=== PATIENT | female | born 1960 | race Caucasian/White ===

== ENCOUNTER 2018-04-08 10:54 | Emergency (ER) | payer OTHER, SELFPAY ==
[2018-04-08 10:57] VITALS: BP 150/93; PULSE 89; RESP 16; TEMP 36.6; O2SAT 97; BMI 27.4
[2018-04-08] MEDS: DiphenhydrAMINE 50 MG/ML Syringe 25 MG IV (11:34)
[2018-04-08] MEDS: Ketorolac 15 MG/ML Vial IV (11:34)
[2018-04-08] MEDS: 0.9% Normal Saline 1,000 ML 1000 ML IV (11:34)
[2018-04-08] MEDS: Metoclopramide 10 MG/2 ML Vial IV (11:34)
[2018-04-08 12:17] VITALS: BP 133/92; PULSE 65; RESP 16; O2SAT 98
--- NOTE | 2018-04-08 12:46 | ED.VISSUMM ---
- ER Visit Summary Date of Service: 04/08/18 Chief Complaint: Headache [] History of Present Illness: The patient is a 58 F [presents the emergency department complaint of a headache that she rates a 10 out of 10. Patient states she has had a headache for about 5 days. Patient states she has had similar headaches off and on but #1 it has lasted this long. She describes it as in the back of her head and left side of her head. Patient denies any falls or head injuries. Patient does have a history of hypertension and history of migraine headaches. Patient typically will get a headache about once every month. She denies any fever or recent illness. She denies any carbon monoxide exposures.] Physical Examination: [HEENT-PERRLA, EOMI. Cranial nerves II through XII grossly intact. TMs clear. Mucous membranes moist. No adenopathy. Cardiovascular-regular rate and rhythm without murmur or ectopy Lungs-clear to auscultation, chest wall stable without crepitus or subcu emphysema Abdomen-normoactive bowel sounds, soft, nontender, no rebound or rigidity, no peritoneal signs. Neuro giub-uwbinu-ywrp and heel eddy testing within normal limits, negative Romberg, negative pronator drift, fundi benign Extremities-intact ?4, normal range of motion, normal pulses, atraumatic] Test Results: [None indicated] Emergency Department Course and Treatment: [Patient was medicated with Reglan, Benadryl, and Toradol as well as a liter normal same fluid bolus and her headache resolved.] Treatment Plan: [Patient follow-up with her primary care physician as needed] Disposition: [Discharged home in stable condition. Patient advised to return if worsening headache, difficulty with balance or speech, or condition should worsen in any way.] Impression: [Migrainous cephalgia-resolved] This note was generated with [employer] dictation software. It may contain incorrect words, spelling, and punctuation that were not noted in review of the chart prior to signing ED Disposition - Plan for ED Patient: Chief Complaint: Headache Referrals: Steffen Diggs MD [Primary Care Provider] -
--- NOTE | 2018-04-08 12:48 | ED.DEP ---
ED Disposition - Plan for ED Patient: Chief Complaint: Headache Instructions: ED Headache Migraine Referrals: Steffen Diggs MD [Primary Care Provider] - 3-5 Days
[2018-04-08 12:51] VITALS: RESP 14
--- NOTE | 2018-04-08 12:52 | ED.RN ---
REVIEWED D/C INSTRUCTIONS, FOLLOW UP CARE, AND S/S THAT WOULD WARRANT A RETURN TO THE ED WITH PT. PT VERBALIZED AN UNDERSTANDING AND DENIES FURTHER QUESTIONS FOR THIS RN. PT SKIN P/W/D, RESP EVEN AND UNLABORED, PT A&O X 3, NO DISTRESS NOTED. PT AMBULATED OUT OF ED, GAIT STEADY.
== END 2018-04-08 12:53 | disposition home or self-care (01) ==
LOC: ED 11:28
PROVIDERS: Emergency Provider Emergency Medicine; PCP Family Medicine
DX: G43.909 Migraine, unspecified, not intractable, without status migrainosus (principal); I10 Essential (primary) hypertension; Z72.0 Tobacco use
CPT/HCPCS: 99283; J7030

== ENCOUNTER 2018-08-28 15:24 | Observation (INO) | payer OTHER, SELFPAY ==
[2018-08-28] VITALS (8 sets, daily range): BP systolic 95–140; BP diastolic 56–98; PULSE 69–106; RESP 16–24; TEMP 36.1–36.6; O2SAT 92–96; BMI 28.8; BMI 27.6
--- NOTE | 2018-08-28 15:48 | CT_ITS ---
STUDY: CTA OF THE BRAIN REASON FOR EXAM: Female, 58 years old. Dizziness RADIATION DOSAGE (If Supplied By Facility): CTDIvol = ( 27.18 ) mGy, DLP = ( 1525.52 ) mGycm TECHNIQUE: CT angiography was performed with a multi-detector CT scanner. Data acquisition was obtained from the skull base through the vertex following intravenous administration of 100 ml of Isovue-370. MIP images were reconstructed from the axial data set. Post-processing of the angiographic images was performed, with multiplanar reformation and 3D reconstruction. Individualized dose optimization techniques were used for this CT. COMPARISON: None. FINDINGS: Normal bilateral petrous carotid arteries. Normal right cavernous carotid artery with a normal supraclinoid bifurcation. Normal left cavernous carotid artery with a normal supraclinoid bifurcation. Normal right A1 segments of the anterior cerebral artery. Normal left A1 segments of the anterior cerebral artery. Normal intact anterior communicating artery (ACOM). Normal bilateral A2 segments of the anterior cerebral arteries. Normal right M1 and M2 segments of the middle cerebral arteries, with a normal M1 bifurcation. Normal left M1 and M2 segments of the middle cerebral arteries, with a normal M1 bifurcation. Normal right posterior communicating artery (PCOM). Normal left posterior communicating artery (PCOM). Normal bilateral vertebral arteries. Normal basilar artery with a normal basilar bifurcation. The visualized bilateral superior cerebellar (SCA) arteries are normal. Normal bilateral P1, P2 and visualized P3 segments of the posterior cerebral arteries. There is no demonstrated aneurysm of the [place] of [place]. There is no demonstrated abnormality of the visualized brain. IMPRESSION: Normal [place] of [place] without a demonstrated aneurysm or hemodynamically significant stenosis. Electronically Signed: Zackary Anne MD at 17:14 EST , Service support , STUDY: CTA NECK WITH AND WITHOUT CONTRAST REASON FOR EXAM: Female, 58 years old. Dizziness RADIATION DOSAGE (If Supplied By Facility): CTDIvol = ( 27.18 ) mGy, DLP = ( 1525.52 ) mGycm TECHNIQUE: CT angiography with multi-detector data acquisition was performed from the aortic arch to the skull base prior to and after intravenous administration of 100 ml of Isovue 370 contrast. MIP images were reconstructed from the axial data set. Post-processing of the angiographic images was performed, with multiplanar reformation and 3D reconstruction. Individualized dose optimization techniques were used for this CT. COMPARISON: None. FINDINGS: AORTIC ARCH: Normal visualized aortic arch. Normal origins of the brachiocephalic, left common carotid, and left subclavian arteries. RIGHT CAROTID ARTERIES: Normal right common carotid artery (CCA). Normal right common carotid bulb. Normal origin of the right internal carotid (ICA) artery without a hemodynamically significant stenosis. Normal visualized cervical portion of the right internal carotid artery. Normal origin of the right external carotid artery (ECA). LEFT CAROTID ARTERIES: Normal left common carotid artery (CCA). There is mild atherosclerotic plaque formation with minimal narrowing of the left carotid bulb. Normal origin of the left internal carotid (ICA) artery without a hemodynamically significant stenosis. Normal visualized cervical portion of the left internal carotid artery. Normal origin of the left external carotid artery (ECA). VERTEBRAL ARTERIES: Normal bilateral vertebral arteries. CT/CTA Neck W/WO Contrast IMPRESSION: Essentially normal bilateral cervical carotid and vertebral arteries. Electronically Signed: Zackary Anne MD at 17:17 EST , Service support ,
--- NOTE | 2018-08-28 15:48 | CT_ITS ---
STUDY: CTA OF THE BRAIN REASON FOR EXAM: Female, 58 years old. Dizziness RADIATION DOSAGE (If Supplied By Facility): CTDIvol = ( 27.18 ) mGy, DLP = ( 1525.52 ) mGycm TECHNIQUE: CT angiography was performed with a multi-detector CT scanner. Data acquisition was obtained from the skull base through the vertex following intravenous administration of 100 ml of Isovue-370. MIP images were reconstructed from the axial data set. Post-processing of the angiographic images was performed, with multiplanar reformation and 3D reconstruction. Individualized dose optimization techniques were used for this CT. COMPARISON: None. FINDINGS: Normal bilateral petrous carotid arteries. Normal right cavernous carotid artery with a normal supraclinoid bifurcation. Normal left cavernous carotid artery with a normal supraclinoid bifurcation. Normal right A1 segments of the anterior cerebral artery. Normal left A1 segments of the anterior cerebral artery. Normal intact anterior communicating artery (ACOM). Normal bilateral A2 segments of the anterior cerebral arteries. Normal right M1 and M2 segments of the middle cerebral arteries, with a normal M1 bifurcation. Normal left M1 and M2 segments of the middle cerebral arteries, with a normal M1 bifurcation. Normal right posterior communicating artery (PCOM). Normal left posterior communicating artery (PCOM). Normal bilateral vertebral arteries. Normal basilar artery with a normal basilar bifurcation. The visualized bilateral superior cerebellar (SCA) arteries are normal. Normal bilateral P1, P2 and visualized P3 segments of the posterior cerebral arteries. There is no demonstrated aneurysm of the [place]. There is no demonstrated abnormality of the visualized brain. IMPRESSION: Normal [place] of [place] without a demonstrated aneurysm or hemodynamically significant stenosis. Electronically Signed: Zackary Anne MD at 17:14 EST , Service support , STUDY: CTA NECK WITH AND WITHOUT CONTRAST REASON FOR EXAM: Female, 58 years old. Dizziness RADIATION DOSAGE (If Supplied By Facility): CTDIvol = ( 27.18 ) mGy, DLP = ( 1525.52 ) mGycm TECHNIQUE: CT angiography with multi-detector data acquisition was performed from the aortic arch to the skull base prior to and after intravenous administration of 100 ml of Isovue 370 contrast. MIP images were reconstructed from the axial data set. Post-processing of the angiographic images was performed, with multiplanar reformation and 3D reconstruction. Individualized dose optimization techniques were used for this CT. COMPARISON: None. FINDINGS: AORTIC ARCH: Normal visualized aortic arch. Normal origins of the brachiocephalic, left common carotid, and left subclavian arteries. RIGHT CAROTID ARTERIES: Normal right common carotid artery (CCA). Normal right common carotid bulb. Normal origin of the right internal carotid (ICA) artery without a hemodynamically significant stenosis. Normal visualized cervical portion of the right internal carotid artery. Normal origin of the right external carotid artery (ECA). LEFT CAROTID ARTERIES: Normal left common carotid artery (CCA). There is mild atherosclerotic plaque formation with minimal narrowing of the left carotid bulb. Normal origin of the left internal carotid (ICA) artery without a hemodynamically significant stenosis. Normal visualized cervical portion of the left internal carotid artery. Normal origin of the left external carotid artery (ECA). VERTEBRAL ARTERIES: Normal bilateral vertebral arteries. CT/CTA Head W/WO Contrast IMPRESSION: Essentially normal bilateral cervical carotid and vertebral arteries. Electronically Signed: Zackary Anne MD at 17:17 EST , Service support ,
[2018-08-28] MEDS: 0.9% Normal Saline 1,000 ML 150 ML IV (15:56)
[2018-08-28 16:14] LABS: Absolute Lymphocyte Count 1.54 X10^3/ul (0.83-4.51); Absolute Neutrophil Count 5.5 X10^3/uL (2.0-7.7); Basophil# 0.02 X10^3/uL; Basophil% 0.3 % (0-1); Eosinophil# 0.08 X10^3/uL; Eosinophils% 1.1 % (0-5); Hematocrit 46.7 % (37-47); Lymphocyte # 1.54 X10^3/ul (4.0); Lymphocyte % 20.3 % (19-41); Mean Corp Hgb Conc 34.3 g/gl (32-36); Mean Corpuscular Hgb 31.4 pg (27.0-32.0); Mean Corpuscular Volume 91.7 fL (81-99); Mean Platelet Vol. 9.6 fl (6.2-12.0); Monocyte# 0.45 X10^3/uL; Monocyte% 5.9 % (0-10); Neutrophil # 5.49 X10^3/uL (2.7-7.7); Neutrophil % 72.3 % (47-70); Platelet Count 257 K/mm3 (150-450); RBC Distribution Width SD 43.7 fl (35.1-43.9); Red Blood Count 5.09 M/mm3 (4.2-5.4); White Blood Count 7.6 K/mm3 (4.4-11.0)
[2018-08-28 16:23] LABS: POSITIVE COUNT NO; POSITIVE DIFFERENTIAL NO; POSITIVE MORPHOLOGY NO
[2018-08-28 16:26] LABS: Anion Gap 9 (5-15); BUN 25 mg/dL (7-18); BUN/Creat Ratio 33.2 RATIO (10-20); Calcium,Total 8.9 mg/dL (8.5-10.1); Chloride 107 mmol/L (98-107); Creatinine, Serum 0.75 mg/dL (0.55-1.02); EST Glomerular Filtration Rate 84 mL/min (>60); Est Glom Filt Rate - Afr Amer 102 mL/min (>60); Estimated Creatinine Clearance 76.54 ml/min; Glucose 90 mg/dL (74-106); Potassium 3.7 mmol/L (3.5-5.1); Sodium Level 139 mmol/L (136-145)
[2018-08-28 16:30] LABS: International Normalized Ratio 1.1; Prothrombin Time (Protime)PT. 14.2 SECONDS (11.7-14.9)
[2018-08-28 16:31] LABS: Partial Thromboplast Time 31.8 Seconds (24.1-36.2)
--- NOTE | 2018-08-28 16:38 | RAD_ITS ---
STUDY: X-RAY CHEST REASON FOR EXAM: Female, 58 years old. Cough TECHNIQUE: PA and lateral views of the chest. COMPARISON: None. FINDINGS: There is hyperinflation of the lungs consistent with chronic obstructive lung disease (COPD). Lungs are clear. There is no demonstrated pleural abnormality. Normal size heart. Normal mediastinum and radha. Normal visualized pulmonary arteries. Normal visualized aortic arch and descending thoracic aorta. Normal visualized thoracic spine. Normal visualized ribs, clavicles, and shoulders. There is no demonstrated abnormality of the visualized soft tissue structures of the upper abdomen. RAD/Chest PA and Lateral IMPRESSION: COPD without acute findings. Electronically Signed: Quintin Leyva DO at 16:56 EST Tel , Service support ,
--- NOTE | 2018-08-28 17:28 | ED.VISSUMM ---
- ER Visit Summary Date of Service: 08/28/18 Chief Complaint: Sinus, nausea, vomiting History of Present Illness: The patient is a 58 F who had sudden onset of dizziness along with nausea and vomiting while driving. She is able to rack puller to the side of the road and had several episodes of emesis. Patient states that she was going to call 911 but could not see her phone. After vomiting her symptoms slowly improved. She drove to the EMS station where her son works and she was transported for evaluation. She denies any prior similar symptoms. She denies any sudden head movements just prior to the onset of her symptoms. She has had intermittent cough for the past week or so. Physical Examination: Vital signs are unremarkable. Patient sitting upright in bed no acute distress. Head neck examination is unremarkable. Heart is regular rate and rhythm. Lung sounds are clear. Abdomen is soft nontender. Neuro exam is unremarkable at this time with an NIH score of 0. Test Results: Chest x-ray shows COPD changes without acute findings. EKG is sinus at 77 with no sign of acute ischemia. CBC is significant only for hemoglobin of 16. Chemistry studies unremarkable. Troponin negative. CTA of the head and neck is unremarkable. Emergency Department Course and Treatment: On repeat examination patient is resting comfortably. Family had asked to speak to me when the patient was in CAT scan. They voiced concern that she seemed to be thinking about her responses to questions and was slower to respond than normal. At this time patient appears to be at baseline. We did discuss concern for TIA and need for further workup and MRI. Patient will be admitted for further evaluation. Treatment Plan: [] Disposition: Admit Impression: TIA This note was generated with [employer] dictation software. It may contain incorrect words, spelling, and punctuation that were not noted in review of the chart prior to signing ED Disposition - Plan for ED Patient: Chief Complaint: Dizziness Referrals: Steffen Diggs MD [Primary Care Provider] -
--- NOTE | 2018-08-28 17:31 | ED.DCSUM_ITS ---
- ER Visit Summary Date of Service: 08/28/18 Chief Complaint: Sinus, nausea, vomiting History of Present Illness: The patient is a 58 F who had sudden onset of dizziness along with nausea and vomiting while driving. She is able to thread puller to the side of the road and had several episodes of emesis. Patient states that she was going to call 911 but could not see her phone. After vomiting her symptoms slowly improved. She drove to the EMS station where her son works and she was transported for evaluation. She denies any prior similar symptoms. She denies any sudden head movements just prior to the onset of her symptoms. She has had intermittent cough for the past week or so. Physical Examination: Vital signs are unremarkable. Patient sitting upright in bed no acute distress. Head neck examination is unremarkable. Heart is regular rate and rhythm. Lung sounds are clear. Abdomen is soft nontender. Neuro exam is unremarkable at this time with an NIH score of 0. Test Results: Chest x-ray shows COPD changes without acute findings. EKG is sinus at 77 with no sign of acute ischemia. CBC is significant only for hemoglobin of 16. Chemistry studies unremarkable. Troponin negative. CTA of the head and neck is unremarkable. Emergency Department Course and Treatment: On repeat examination patient is resting comfortably. Family had asked to speak to me when the patient was in CAT scan. They voiced concern that she seemed to be thinking about her responses to questions and was slower to respond than normal. At this time patient appears to be at baseline. We did discuss concern for TIA and need for further workup and MRI. Patient will be admitted for further evaluation. Treatment Plan: [] Disposition: Admit Impression: TIA This note was generated with [employer] dictation software. It may contain incorrect words, spelling, and punctuation that were not noted in review of the chart prior to signing ED Disposition - Plan for ED Patient: Chief Complaint: Dizziness Referrals: Steffen Diggs MD [Primary Care Provider] -
--- NOTE | 2018-08-28 19:01 | MRI_ITS ---
STUDY: MRI BRAIN WITHOUT CONTRAST REASON FOR EXAM: Female, 58 years old. Vertigo with dizziness. TECHNIQUE: Standardized multiplanar fat and water weighted pulse sequences were obtained. COMPARISON: None. FINDINGS: Normal size of the ventricles and extra-axial spaces for the patient's age. Normal white matter tracts of the supratentorial brain. There is no evidence for recent intracranial ischemia or other cause of cytotoxic edema on diffusion weighted imaging (DWI). Normal T2* images of the brain without demonstrated susceptibility artifact. There is no demonstrated hemosiderin stain. Normal bilateral basal ganglia. Normal thalami. There is no extra-axial fluid accumulation. Normal flow voids within the major intracranial circulation suggesting patency by spin echo criteria. Normal sella turcica, pituitary gland, infundibular stalk, optic chiasm and hypothalamus. Normal tectal plate and pineal gland. Normal midbrain, anne and medulla. Normal cerebellum. Normal basal cisterns. Normal bilateral temporal bones. Normal bilateral internal auditory canals. No demonstrated orbital abnormality, within the constraints of a routine brain study. Normal visualized paranasal sinuses. Normal calvarium and skull base. Normal visualized soft tissue structures. Normal visualized upper cervical spine. MRI/Brain without Contrast IMPRESSION: No evidence of acute intracranial bleed, mass or ischemia. Electronically Signed: Guzman Rivera DO at 11:18 EST , Service support ,
--- NOTE | 2018-08-28 19:08 | PCM.HP.STD ---
Problem List (1) Dizziness Status: Acute History of Present Illness Date of Admission: 08/28/18 Chief Complaint: Dizziness, nausea and vomiting The patient is a 58 year old F who was seen in the emergency room at [facility] with chief complaint of a sudden onset of dizziness today with her environment spinning around her while she was driving. Following this episode she also had 2 episodes of nausea and vomiting, the total length of time that the patient complained of dizzy symptomology was 2 minutes. Patient denied any speech disturbance, visual disturbances, and she denied any focal motor weakness. Workup in the emergency room included a CTA of the head and neck which showed no abnormalities, chest x-ray showed no abnormalities, CBC was unremarkable, chemistry profile was remarkable for a BUN of 25. Patient's NIH stroke score was 0. Patient will be placed and observation status for dizziness-ischemic stroke will be ruled out, she will have an MRI of the brain tomorrow, NIH stroke scores will be monitored. I do not believe the patient needs to be on Plavix at this time, she takes a baby aspirin a day at home. I also do not feel the patient needs an echocardiogram ordered at this time-I am not absolutely sure she had a stroke. 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 Lives: Spouse/ Significant Other Smoking Status: Current every day smoker Tobacco Use: Cigarettes Alcohol: Occasional Drugs: None - *Family History Maternal History Items: Cancer - Bone cancer Paternal History Items: Cancer - Throat cancer, COPD, Hypertension Review of Systems Constitutional: Denies: Anorexia, Chills, Fever, Night Sweats, Malaise, Weakness, Weight Change, Fatigue Eyes: Denies: Blurred vision, Cataracts, Conjunctivae Inflammation, Double vision HEENT: Denies: Difficulty Swallowing, Dysphasia, Ear Pain, Eye Pain, Head Aches, Hearing Changes, Nasal bleeding, Nasal Congestion, Post Nasal Drip Cardiovascular: Denies: Chest Pain, Claudication, Chest Pressure, Chest Tightness, Edema, Heaviness, Palpitations Respiratory: Denies: Cough, Hemoptysis, Pleuritic Pain, Shortness of Breath, Shortness of breath at rest, Shortness of breath upon exertion, Sputum production, Wheezing Gastrointestinal: Reports: Nausea, Vomiting - As described in chief complaint. Denies: Abdominal Pain, Constipation, Diarrhea, Hematemesis, Hematochezia, Melena Genitourinary: Denies: Dysuria, Frequency, Hematuria, Hesitancy, Urgency Gynecological: Denies: Breast symptoms Musculoskeletal: Denies: Back Pain, Foot Pain, Hand Pain, Joint Pain, Joint stiffness, Joint swelling, Joint Tenderness, Leg Pain Skin: Denies: Dryness, Pruritis, Rash Neurological: Reports: - - Brief episode of dizziness as described in chief complaint. Denies: Blurred vision, Double vision, Slurred speech, Confusion, Difficulty swallowing, Focal weakness, Headaches, Numbness, Tingling Psychiatric: Denies: Anxiety, Depression, Homicidal Ideations, Suicidal Ideations Endocrine: Denies: Change in Body Habitus, Heat/ Cold Intolerance, Polydipsia, Polyuria Hematologic/ Lymphatic: Denies: Adenopathy, Anemia, Easy Bruising, Easy Bleeding, Petechiae, Purpura VTE Information - Inpt Only VTE Present on Admission: No VTE Mechan Device Prophylaxis: None VTE Pharm Prophylaxis ordered?: Yes Patient Problems: Active and Suspected Problems Dizziness (Acute) - Physical Exam General: Alert, Oriented x3, Cooperative, No apparent distress, Well developed, Well nourished HEENT: Atraumatic, PERRLA, EOMI, Normocephalic Oral: Moist Mucosa Neck: Supple, No JVD, Negative Carotid Bruits, No Nuchal Rigidity, Trachea Midline, Thyroid Normal Size and Texture Lungs: Clear to auscultation, Normal air movement, No rhonchi, No wheeze, No rales Cardiovascular: Regular rate, Regular Rhythm, Normal S1, Normal S2, No murmurs, No Ectopic Activity, PMI Normal, No rub noted, No Gallop Abdomen: Bowel Sounds Present, Soft, Non Tender, Non-Distended, No hernias noted Extremities: No clubbing, No cyanosis, No edema, Capillary Refill Less than 3 Seconds Skin: No rashes, No breakdown Musculoskeletal: No Tenderness to Palpation of Joints or Extremities Neurological: Cranial nerves II-XII grossly intact, Neuro grossly intact, Motor Exam 5/5 strength throughout, Sensory exam intact to light touch and pain, Coordination normal Psych/Mental Status: Normal Affect, Appropriate, Alert and oriented to time, place, person, mood and affect Vital Signs Temp Pulse Resp BP Pulse Ox 97.5 F L 96 16 132/90 H 96 08/28/18 18:50 08/28/18 18:50 08/28/18 18:50 08/28/18 18:50 08/28/18 18:50 Oxygen Delivery Method Room Air Weight: 77.6 kg Body Mass Index (BMI) 27.6 Laboratory Tests Past 24 Hrs 08/28/18 08/28/18 08/28/18 16:00 16:00 16:00 WBC 7.6 RBC 5.09 Hgb 16.0 H Hct 46.7 MCV 91.7 MCH 31.4 MCHC 34.3 RDW 13.0 RDW Differential 43.7 Plt Count 257 MPV 9.6 Immature Gran % (Auto) 0.100 Neut % (Auto) 72.3 H Lymph % (Auto) 20.3 [place] % (Auto) 5.9 Eos % (Auto) 1.1 Baso % (Auto) 0.3 Absolute Neuts (auto) 5.5 Absolute Lymphs (auto) 1.54 Total Counted Not Reportable PT 14.2 INR 1.1 APTT 31.8 Sodium 139 Potassium 3.7 Chloride 107 Carbon Dioxide 23.0 Anion Gap 9 BUN 25 H Creatinine 0.75 Estim Creat Clear Calc 76.54 Est GFR (MDRD) Af Amer 102 Est GFR (MDRD) Non-Af 84 BUN/Creatinine Ratio 33.2 H Glucose 90 Calcium 8.9 Troponin I < 0.015 Assessment/Plan All Active Problems Dizziness (Acute) #1 brief episode of dizziness which spontaneously resolved-etiology unclear at this point, patient has risk factors for cerebral vascular disease (smoking, hyperlipidemia, past history of hypertension)-patient will be placed and observation status on PCU, NIH stroke scores will be monitored, she will have an MRI of the brain tomorrow to rule out CVA. I have increased the patient's statin to Lipitor 80 mg nightly, she will remain on a baby aspirin a day-I do not think she needs to be placed on Plavix at this time #2 hyperlipidemia-again patient will be placed on Lipitor 80 mg nightly #3 past history of hypertension-patient states she used to be on hydrochlorothiazide until 2 months ago when she was taken off the medication, she was told by her physician she did not need to take it any longer, patient's blood pressure will be monitored on PCU. #4 brief episode of nausea and vomiting-secondary to acute vertiginous episode Code Visit OBSV E&M: 18366 Initial observation care L3
[2018-08-28] MEDS: Aspirin 81 MG TAB.CHEW PO (20:58)
[2018-08-28] MEDS: Atorvastatin Calcium 80 MG Tablet PO (20:58)
[2018-08-28] MEDS: Zolpidem Tartrate 5 MG Tablet PO (23:26)
[2018-08-29 03:00] VITALS: PULSE 62
[2018-08-29 03:25] VITALS: BP 97/53; PULSE 65; RESP 16; TEMP 36.6; O2SAT 93
[2018-08-29 03:30] VITALS: O2SAT 93
[2018-08-29 05:15] VITALS: BP 105/63; PULSE 63; RESP 18; TEMP 36.4; O2SAT 97
[2018-08-29 05:30] VITALS: BMI 27.6
[2018-08-29] MEDS: 0.9% NaCl Peripheral Flush Adult/Peds IV ×2 (06:02→10:16)
[2018-08-29 07:02] VITALS: PULSE 81
[2018-08-29 07:29] LABS: Cholesterol 184 mg/dL (200); High Density Lipoprotein 53 mg/dL; Triglycerides 73 mg/dL; Very Low Density Lipoprotein 15 mg/dL (5-40)
[2018-08-29 09:15] VITALS: BP 109/86; PULSE 83; RESP 18; TEMP 36.7; O2SAT 94
[2018-08-29] MEDS: Aspirin 81 MG TAB.CHEW PO (09:27)
[2018-08-29] MEDS: LORazepam 2 MG/ML Syringe 1 MG IV (10:16)
--- NOTE | 2018-08-29 11:17 | DCINST_ITS ---
- Discharge Diagnoses Current Active Problems: Current Active and Chronic Problems Dizziness (Acute) You will use the following diet at home:: No restrictions Discharge Activity: Return to Normal Activity Call your doctor if you observe: Numbness or Tingling, Shortness of breath, Dizziness, Fainting spells, Chest pain Allergies/Adverse Reactions: Allergies No Known Allergies Allergy (Verified 04/08/18 11:39) Medications to take at Discharge Pravastatin [Pravachol] 40 mg PO DAILY 04/08/18 Primary Care Physician: Steffen Diggs MD [Primary Care Provider] - Please follow up with your Primary Care Physician in: 1 Week Test Results: Test results from this visit will be discussed in further detail at your follow- up appointment, if applicable. Proposed Discharge Date: 08/29/18
--- NOTE | 2018-08-29 12:10 | PCM.DC.SUM ---
<Anna Marie Quiles - Last Filed: 08/29/18 12:25> Discharge Date and Diagnosis Date of Admission: 08/28/18 Date of Discharge: 08/29/18 - Primary Discharge Diagnosis Active and Suspected Problems 1. Dizziness, brief episode- Unclear etiology. CVA ruled out. Possibly due to acute vertigo episode. 2. Hyperlipidemia 3. Tobacco dependence Hospital Course and Treatment Imaging Results: Diagnostic Data Head CTA 08/28/18 15:48 IMPRESSION: Essentially normal bilateral cervical carotid and vertebral arteries. Electronically Signed: Zackary Anne MD at 17:17 EST , Service support , Neck CTA 08/28/18 15:48 IMPRESSION: Essentially normal bilateral cervical carotid and vertebral arteries. Electronically Signed: Zackary Anne MD at 17:17 EST , Service support , Chest X-Ray 08/28/18 16:38 IMPRESSION: COPD without acute findings. Electronically Signed: Quintin Leyva DO at 16:56 EST Tel , Service support , Brain MRI 08/28/18 19:01 IMPRESSION: No evidence of acute intracranial bleed, mass or ischemia. Electronically Signed: Guzman Rivera DO at 11:18 EST , Service support , Operations: None Procedures: None Summary of Care Provided: The patient is a 58 year old F admitted 08/28/2018 due to brief episode of dizziness with associated nausea and vomiting. Patient reports the entire episode occurs over approximately 2 minutes. She denies any speech disturbance, visual disturbance, focal weakness, numbness, tingling, facial droop. CTA of the head and neck showed no abnormalities. Chest x-ray unremarkable. Lab work unremarkable. NIH 0. MRI of brain showed no evidence of acute intracranial bleed, mass or ischemia. Stroke ruled out. EKG without ST-T changes. Troponin negative. Suspect acute episode of vertigo. Patient currently on aspirin, statin which she will continue taking. Given her cardiac risk factors including hyperlipidemia, tobacco dependence and history of hypertension, discussed with patient recommendations of outpatient stress test which can be ordered by patient's primary care physician. Patient agreeable. Patient denies chest pain, shortness of breath. Follow-up with primary care physician 3-5 days. General: Alert, Oriented x3, Cooperative, No apparent distress HEENT: Atraumatic, PERRLA, EOMI, Normocephalic Oral: Moist Mucosa Neck: Supple, No JVD, Negative Carotid Bruits Lungs: Clear to auscultation, Normal air movement Cardiovascular: Regular rate, Regular Rhythm, Normal S1, Normal S2, No murmurs Abdomen: Bowel Sounds Present, Soft, Non Tender, Non-Distended Extremities: No clubbing, No cyanosis, No edema Skin: No rashes, No breakdown Musculoskeletal: No Tenderness to Palpation of Joints or Extremities Neurological: Cranial nerves II-XII grossly intact, Neuro grossly intact, Motor Exam 5/5 strength throughout Psych/Mental Status: Normal Affect, Appropriate Patient seen and examined prior to discharge. Physical assessment as noted above. Patient is stable for discharge with follow up recommendations as noted above. This patient was seen by DYLLAN Soliman under the supervision of Rosalia. - Physical Exam Vital Signs Temp Pulse Resp BP Pulse Ox 98.1 F 83 18 109/86 H 94 08/29/18 09:15 08/29/18 09:15 08/29/18 09:15 08/29/18 09:15 08/29/18 09:15 Oxygen Delivery Method Room Air Weight: 171 lb 1.259 oz Body Mass Index (BMI) 27.6 Intake and Output for Last 24 Hours 08/27/18 08/28/18 08/29/18 23:59 23:59 23:59 Intake Total 960 / 960 Balance 960 / 960 Laboratory Tests Past 24 Hrs 08/28/18 08/28/18 08/28/18 16:00 16:00 16:00 WBC 7.6 RBC 5.09 Hgb 16.0 H Hct 46.7 MCV 91.7 MCH 31.4 MCHC 34.3 RDW 13.0 RDW Differential 43.7 Plt Count 257 MPV 9.6 Immature Gran % (Auto) 0.100 Neut % (Auto) 72.3 H Lymph % (Auto) 20.3 [place] % (Auto) 5.9 Eos % (Auto) 1.1 Baso % (Auto) 0.3 Absolute Neuts (auto) 5.5 Absolute Lymphs (auto) 1.54 Total Counted Not Reportable PT 14.2 INR 1.1 APTT 31.8 Sodium 139 Potassium 3.7 Chloride 107 Carbon Dioxide 23.0 Anion Gap 9 BUN 25 H Creatinine 0.75 Estim Creat Clear Calc 76.54 Est GFR (MDRD) Af Amer 102 Est GFR (MDRD) Non-Af 84 BUN/Creatinine Ratio 33.2 H Glucose 90 Calcium 8.9 Troponin I < 0.015 Triglycerides Cholesterol LDL Cholesterol VLDL Cholesterol HDL Cholesterol 08/29/18 05:29 WBC RBC Hgb Hct MCV MCH MCHC RDW RDW Differential Plt Count MPV Immature Gran % (Auto) Neut % (Auto) Lymph % (Auto) [place] % (Auto) Eos % (Auto) Baso % (Auto) Absolute Neuts (auto) Absolute Lymphs (auto) Total Counted PT INR APTT Sodium Potassium Chloride Carbon Dioxide Anion Gap BUN Creatinine Estim Creat Clear Calc Est GFR (MDRD) Af Amer Est GFR (MDRD) Non-Af BUN/Creatinine Ratio Glucose Calcium Troponin I Triglycerides 73 Cholesterol 184 LDL Cholesterol 116 VLDL Cholesterol 15 HDL Cholesterol 53 Discharge Diet: Low fat/ Low Cholesterol Discharge Activity: Return to Normal Activity Call your doctor if you observe: Numbness or Tingling, Shortness of breath, Dizziness, Fainting spells, Chest pain Home Medications: Medications to take at Discharge Pravastatin [Pravachol] 40 mg PO DAILY 04/08/18 Aspirin E.C. [Ecotrin] 81 mg PO DAILY@0800 #30 tab 08/29/18 Following Prescrptions Were Given to Patient: Aspirin E.C. [Ecotrin] 81 mg PO DAILY@0800 #30 tab Primary Care Physician: Steffen Diggs MD [Primary Care Provider] - Please follow up with your Primary Care Physician in: 1 Week Disposition: Home Minutes spent on discharge:: 35 Patient Condition:: Stable Medical Necessity - Tobacco Use Smoking Status: Current every day smoker Tobacco Use: Cigarettes Meaningful Use Info Meaningful Use Diagnoses (Choose all that apply): None applicable <Rick Lindsey - Last Filed: 08/29/18 13:44> Discharge Date and Diagnosis - Secondary Discharge Diagnosis This patient was seen in conjunction with DYLLAN Soliman . I have independently interviewed and examined the patient and reviewed pertinent historical, laboratory, and other data. Please refer to DYLLAN Soliman note for details of this patient's presentation, findings, and recommendations. I have reviewed DYLLAN Soliman note and concur with documented findings. In brief, patient is a 58-year-old lady who presented with dizziness patient was admitted to a monitored bed for subsequent management Hospital course: As elicited above by Anna Marie Quiles NP?C Hospital Course and Treatment Summary of Care Provided: The patient is a 58 year old F [] - Physical Exam Vital Signs Temp Pulse Resp BP Pulse Ox 98.1 F 83 18 109/86 H 94 08/29/18 09:15 08/29/18 09:15 08/29/18 09:15 08/29/18 09:15 08/29/18 09:15 Oxygen Delivery Method Room Air Weight: 77.6 kg Body Mass Index (BMI) 27.6 Intake and Output for Last 24 Hours 08/27/18 08/28/18 08/29/18 23:59 23:59 23:59 Intake Total 960 / 960 Balance 960 / 960 Laboratory Tests Past 24 Hrs 08/28/18 08/28/18 08/28/18 16:00 16:00 16:00 WBC 7.6 RBC 5.09 Hgb 16.0 H Hct 46.7 MCV 91.7 MCH 31.4 MCHC 34.3 RDW 13.0 RDW Differential 43.7 Plt Count 257 MPV 9.6 Immature Gran % (Auto) 0.100 Neut % (Auto) 72.3 H Lymph % (Auto) 20.3 [place] % (Auto) 5.9 Eos % (Auto) 1.1 Baso % (Auto) 0.3 Absolute Neuts (auto) 5.5 Absolute Lymphs (auto) 1.54 Total Counted Not Reportable PT 14.2 INR 1.1 APTT 31.8 Sodium 139 Potassium 3.7 Chloride 107 Carbon Dioxide 23.0 Anion Gap 9 BUN 25 H Creatinine 0.75 Estim Creat Clear Calc 76.54 Est GFR (MDRD) Af Amer 102 Est GFR (MDRD) Non-Af 84 BUN/Creatinine Ratio 33.2 H Glucose 90 Calcium 8.9 Troponin I < 0.015 Triglycerides Cholesterol LDL Cholesterol VLDL Cholesterol HDL Cholesterol 08/29/18 05:29 WBC RBC Hgb Hct MCV MCH MCHC RDW RDW Differential Plt Count MPV Immature Gran % (Auto) Neut % (Auto) Lymph % (Auto) [place] % (Auto) Eos % (Auto) Baso % (Auto) Absolute Neuts (auto) Absolute Lymphs (auto) Total Counted PT INR APTT Sodium Potassium Chloride Carbon Dioxide Anion Gap BUN Creatinine Estim Creat Clear Calc Est GFR (MDRD) Af Amer Est GFR (MDRD) Non-Af BUN/Creatinine Ratio Glucose Calcium Troponin I Triglycerides 73 Cholesterol 184 LDL Cholesterol 116 VLDL Cholesterol 15 HDL Cholesterol 53 Code Visit OBSV E&M: 66318 Observation care discharge
--- NOTE | 2018-08-29 12:17 | DS.PCM_ITS ---
<Anna Marie Quiles - Last Filed: 08/29/18 12:25> Discharge Date and Diagnosis Date of Admission: 08/28/18 Date of Discharge: 08/29/18 - Primary Discharge Diagnosis Active and Suspected Problems 1. Dizziness, brief episode- Unclear etiology. CVA ruled out. Possibly due to acute vertigo episode. 2. Hyperlipidemia 3. Tobacco dependence Hospital Course and Treatment Imaging Results: Diagnostic Data Head CTA 08/28/18 15:48 IMPRESSION: Essentially normal bilateral cervical carotid and vertebral arteries. Electronically Signed: Zackary Anne MD at 17:17 EST , Service support , Neck CTA 08/28/18 15:48 IMPRESSION: Essentially normal bilateral cervical carotid and vertebral arteries. Electronically Signed: Zackary Anne MD at 17:17 EST , Service support , Chest X-Ray 08/28/18 16:38 IMPRESSION: COPD without acute findings. Electronically Signed: Quintin Leyva DO at 16:56 EST Tel , Service support , Brain MRI 08/28/18 19:01 IMPRESSION: No evidence of acute intracranial bleed, mass or ischemia. Electronically Signed: Guzman Rivera DO at 11:18 EST , Service support , Operations: None Procedures: None Summary of Care Provided: The patient is a 58 year old F admitted 08/28/2018 due to brief episode of dizziness with associated nausea and vomiting. Patient reports the entire episode occurs over approximately 2 minutes. She denies any speech disturbance, visual disturbance, focal weakness, numbness, tingling, facial droop. CTA of the head and neck showed no abnormalities. Chest x-ray unremarkable. Lab work unremarkable. NIH 0. MRI of brain showed no evidence of acute intracranial bleed, mass or ischemia. Stroke ruled out. EKG without ST-T changes. Troponin negative. Suspect acute episode of vertigo. Patient currently on aspirin, stat in which she will continue taking. Given her cardiac risk factors including hyperlipidemia, tobacco dependence and history of hypertension, discussed with patient recommendations of outpatient stress test which can be ordered by patient's primary care physician. Patient agreeable. Patient denies chest pain, shortness of breath. Follow-up with primary care physician 3-5 days. General: Alert, Oriented x3, Cooperative, No apparent distress HEENT: Atraumatic, PERRLA, EOMI, Normocephalic Oral: Moist Mucosa Neck: Supple, No JVD, Negative Carotid Bruits Lungs: Clear to auscultation, Normal air movement Cardiovascular: Regular rate, Regular Rhythm, Normal S1, Normal S2, No murmurs Abdomen: Bowel Sounds Present, Soft, Non Tender, Non-Distended Extremities: No clubbing, No cyanosis, No edema Skin: No rashes, No breakdown Musculoskeletal: No Tenderness to Palpation of Joints or Extremities Neurological: Cranial nerves II-XII grossly intact, Neuro grossly intact, Motor Exam 5/5 strength throughout Psych/Mental Status: Normal Affect, Appropriate Patient seen and examined prior to discharge. Physical assessment as noted above. Patient is stable for discharge with follow up recommendations as noted above. This patient was seen by DYLLAN Soliman under the supervision of Rosalia. - Physical Exam Vital Signs Temp Pulse Resp BP Pulse Ox 98.1 F 83 18 109/86 H 94 08/29/18 09:15 08/29/18 09:15 08/29/18 09:15 08/29/18 09:15 08/29/18 09:15 Oxygen Delivery Method Room Air Weight: 171 lb 1.259 oz Body Mass Index (BMI) 27.6 Intake and Output for Last 24 Hours 08/27/18 08/28/18 08/29/18 23:59 23:59 23:59 Intake Total 960 / 960 Balance 960 / 960 Laboratory Tests Past 24 Hrs 08/28/18 08/28/18 08/28/18 16:00 16:00 16:00 WBC 7.6 RBC 5.09 Hgb 16.0 H Hct 46.7 MCV 91.7 MCH 31.4 MCHC 34.3 RDW 13.0 RDW Differential 43.7 Plt Count 257 MPV 9.6 Immature Gran % (Auto) 0.100 Neut % (Auto) 72.3 H Lymph % (Auto) 20.3 [place] % (Auto) 5.9 Eos % (Auto) 1.1 Baso % (Auto) 0.3 Absolute Neuts (auto) 5.5 Absolute Lymphs (auto) 1.54 Total Counted Not Reportable PT 14.2 INR 1.1 APTT 31.8 Sodium 139 Potassium 3.7 Chloride 107 Carbon Dioxide 23.0 Anion Gap 9 BUN 25 H Creatinine 0.75 Estim Creat Clear Calc 76.54 Est GFR (MDRD) Af Amer 102 Est GFR (MDRD) Non-Af 84 BUN/Creatinine Ratio 33.2 H Glucose 90 Calcium 8.9 Troponin I < 0.015 Triglycerides Cholesterol LDL Cholesterol VLDL Cholesterol HDL Cholesterol 08/29/18 05:29 WBC RBC Hgb Hct MCV MCH MCHC RDW RDW Differential Plt Count MPV Immature Gran % (Auto) Neut % (Auto) Lymph % (Auto) [place] % (Auto) Eos % (Auto) Baso % (Auto) Absolute Neuts (auto) Absolute Lymphs (auto) Total Counted PT INR APTT Sodium Potassium Chloride Carbon Dioxide Anion Gap BUN Creatinine Estim Creat Clear Calc Est GFR (MDRD) Af Amer Est GFR (MDRD) Non-Af BUN/Creatinine Ratio Glucose Calcium Troponin I Triglycerides 73 Cholesterol 184 LDL Cholesterol 116 VLDL Cholesterol 15 HDL Cholesterol 53 Discharge Diet: Low fat/ Low Cholesterol Discharge Activity: Return to Normal Activity Call your doctor if you observe: Numbness or Tingling, Shortness of breath, Dizziness, Fainting spells, Chest pain Home Medications: Medications to take at Discharge Pravastatin [Pravachol] 40 mg PO DAILY 04/08/18 Aspirin E.C. [Ecotrin] 81 mg PO DAILY@0800 #30 tab 08/29/18 Following Prescrptions Were Given to Patient: Aspirin E.C. [Ecotrin] 81 mg PO DAILY@0800 #30 tab Primary Care Physician: Steffen Diggs MD [Primary Care Provider] - Please follow up with your Primary Care Physician in: 1 Week Disposition: Home Minutes spent on discharge:: 35 Patient Condition:: Stable Medical Necessity - Tobacco Use Smoking Status: Current every day smoker Tobacco Use: Cigarettes Meaningful Use Info Meaningful Use Diagnoses (Choose all that apply): None applicable <Rick Lindsey - Last Filed: 08/29/18 13:44> Discharge Date and Diagnosis - Secondary Discharge Diagnosis This patient was seen in conjunction with DYLLAN Soliman . I have independently interviewed and examined the patient and reviewed pertinent historical, laboratory, and other data. Please refer to DYLLAN Soliman note for details of this patient's presentation, findings, and recommendations. I have reviewed DYLLAN Soliman note and concur with documented findings. In brief, patient is a 58-year-old lady who presented with dizziness patient was admitted to a monitored bed for subsequent management Hospital course: As elicited above by Anna Marie Quiles NP?C Hospital Course and Treatment Summary of Care Provided: The patient is a 58 year old F [] - Physical Exam Vital Signs Temp Pulse Resp BP Pulse Ox 98.1 F 83 18 109/86 H 94 08/29/18 09:15 08/29/18 09:15 08/29/18 09:15 08/29/18 09:15 08/29/18 09:15 Oxygen Delivery Method Room Air Weight: 77.6 kg Body Mass Index (BMI) 27.6 Intake and Output for Last 24 Hours 08/27/18 08/28/18 08/29/18 23:59 23:59 23:59 Intake Total 960 / 960 Balance 960 / 960 Laboratory Tests Past 24 Hrs 08/28/18 08/28/18 08/28/18 16:00 16:00 16:00 WBC 7.6 RBC 5.09 Hgb 16.0 H Hct 46.7 MCV 91.7 MCH 31.4 MCHC 34.3 RDW 13.0 RDW Differential 43.7 Plt Count 257 MPV 9.6 Immature Gran % (Auto) 0.100 Neut % (Auto) 72.3 H Lymph % (Auto) 20.3 [place] % (Auto) 5.9 Eos % (Auto) 1.1 Baso % (Auto) 0.3 Absolute Neuts (auto) 5.5 Absolute Lymphs (auto) 1.54 Total Counted Not Reportable PT 14.2 INR 1.1 APTT 31.8 Sodium 139 Potassium 3.7 Chloride 107 Carbon Dioxide 23.0 Anion Gap 9 BUN 25 H Creatinine 0.75 Estim Creat Clear Calc 76.54 Est GFR (MDRD) Af Amer 102 Est GFR (MDRD) Non-Af 84 BUN/Creatinine Ratio 33.2 H Glucose 90 Calcium 8.9 Troponin I < 0.015 Triglycerides Cholesterol LDL Cholesterol VLDL Cholesterol HDL Cholesterol 08/29/18 05:29 WBC RBC Hgb Hct MCV MCH MCHC RDW RDW Differential Plt Count MPV Immature Gran % (Auto) Neut % (Auto) Lymph % (Auto) [place] % (Auto) Eos % (Auto) Baso % (Auto) Absolute Neuts (auto) Absolute Lymphs (auto) Total Counted PT INR APTT Sodium Potassium Chloride Carbon Dioxide Anion Gap BUN Creatinine Estim Creat Clear Calc Est GFR (MDRD) Af Amer Est GFR (MDRD) Non-Af BUN/Creatinine Ratio Glucose Calcium Troponin I Triglycerides 73 Cholesterol 184 LDL Cholesterol 116 VLDL Cholesterol 15 HDL Cholesterol 53 Code Visit OBSV E&M: 17710 Observation care discharge
--- NOTE | 2018-08-29 13:02 | NURSING ---
REVIEWED AND AGREED W/ Iveth CABALLERO'S CHARTING.
== END 2018-08-29 11:17 | disposition home or self-care (01) ==
LOC: ED 16:59 → PCU 18:07
PROVIDERS: Admitting Provider Internal Medicine; Emergency Provider Emergency Medicine; Family Provider Family Medicine; PCP Family Medicine; Referring Provider Internal Medicine; Visit Provider Internal Medicine
DX: R42 Dizziness and giddiness (principal); E78.5 Hyperlipidemia, unspecified; R11.2 Nausea with vomiting, unspecified; J44.9 Chronic obstructive pulmonary disease, unspecified; R29.700 NIHSS score 0; F17.210 Nicotine dependence, cigarettes, uncomplicated; I10 Essential (primary) hypertension
CPT/HCPCS: 36415; 70496; 70498; 70551; 71046; 80048; 80061; 84484; 85025; 85610; 85730; 93005; 96361; 96374; 99218; 99285; 99406; J7030; Q9967; A4216; G0378

== ENCOUNTER 2021-02-24 10:31 | Emergency (ER) | payer OTHER, SELFPAY ==
[2021-02-24 10:34] VITALS: BP 167/99; PULSE 116; RESP 17; TEMP 36.8; O2SAT 91; BMI 28.1
--- NOTE | 2021-02-24 11:04 | RAD_ITS ---
HISTORY: cough. TECHNIQUE: XR Chest 1 View. # of images incl. paperwork: 1. COMPARISON: 08/28/2018. FINDINGS: CARDIOMEDIASTINAL STRUCTURES: Cardiac silhouette not enlarged. Mediastinal contour unremarkable. LUNGS: Mild right basilar opacity. PLEURA: No pleural effusion or pneumothorax. OSSEOUS STRUCTURES: Degenerative change. Chronic left upper rib fractures. RAD/Chest 1 View (Portable) IMPRESSION: Mild right basilar inflammation or infection. at 1219 Reported and signed by: Ewelina Peng MD Electronically Signed: Ewelina Peng MD at 12:17 EDT Tel , Service support ,
--- NOTE | 2021-02-24 11:05 | EDS_ITS ---
HPI HPI - URI History of Present Illness Chief Complaint: Cough Informant: patient Onset/Context/Timing Onset: Weeks (2) Context: Gradual Onset Timing: Continuous Quality: Occasionally productive of thick yellow sputum Current Severity: Moderate Maximum Severity: Moderate Worsened by: - (Nothing) Relieved by: - (Nothing, including course of amoxicillin) Associated Symptoms Associated Symptoms: Positive for Nasal Congestion, Headache, Shortness of Breath (Occasionally, does not think she is wheezing) and Productive Cough; Negative for Sinus Pressure, Myalgias, Nausea, Vomiting, Diarrhea, Chest Pain and Hemoptysis Narrative Narrative: Patient concerned that she has bronchitis. She states she gets this this time every year. 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 She gets tested every week for Covid and has never tested positive, but she has not been vaccinated. The last time she had a test was 6 days ago, during this illness and it was negative, and she is due to be tested again tomorrow. She is thinking she needs some steroids or something. ROS ROS ED Constitutional Constitutional ED: Reports malaise and other Details: Denies loss of taste or smell ; Denies body ache(s), chills or fever(s) Eyes Eyes: Denies change in vision, diplopia or discharge from eye(s) ENT ENT ED: Reports as per HPI, nasal congestion and rhinorrhea; Denies discharge from eye(s), ear pain, facial pain or sore throat Cardiovascular Cardiovascular: Denies chest pain or palpitations Respiratory/Chest Respiratory/Chest: Reports as per HPI and cough Gastrointestinal Gastrointestinal: Denies abdominal pain, diarrhea, nausea or vomiting Genitourinary Genitourinary ED: Denies dysuria or hematuria Musculoskeletal Musculoskeletal: Denies back pain or neck pain Integumentary Denies abscess or rash Neurologic Neurologic: Reports headache(s); Denies paresthesias or weakness Psychiatric Psychiatric: Denies anxiety or suicidal thoughts [facility] Medical History (Updated 02/24/21 @ 12:[address] Tariq Abreu MD) Hyperlipidemia Home Medications pravastatin 40 mg PO DAILY 04/08/18 [History Last Taken Unknown] aspirin 81 mg PO DAILY@0800 #30 tab 08/29/18 [Rx Last Taken Unknown] azithromycin 250 mg PO DAILY #6 tablet 02/24/21 [Rx Last Taken Unknown] benzonatate 200 mg PO TID PRN PRN #20 capsule 02/24/21 [Rx Last Taken Unknown] Allergy/AdvReac Type Severity Reaction Status Date / Time No Known Allergies Allergy Verified 02/24/21 10:33 Social History Smoking Status: Current every day smoker tobacco type: cigarettes EXAM Physical Exam Const Vital Signs: 02/24/21 10:34 02/24/21 11:26 Temperature 98.2 F Temperature Source Oral Pulse Rate 116 H Respiratory Rate 17 Respiratory Effort Normal Non-Labored Blood Pressure 167/99 H Blood Pressure Mean 121 Pulse Ox 91 Oxygen Delivery Method Room Air Positive well nourished and well developed Constitutional Narrative: Well-appearing, conversive in full sentences General Appearance ED: well developed and NAD HEENT Reports moist mucous membranes normocephalic and atraumatic Eyes PERRL and EOMs intact bilaterally Neck full ROM and supple Resp normal respiratory effort and clear to auscultation bilaterally Cardio regular rate, regular rhythm and no murmurs GI non-tender and non-distended Auscultation: normoactive bowel sounds Palpation: soft Back/Spine no CVA tenderness General Back: other FROM Extremity normal to inspection General Extremety ED: Negative for edema, pulses abnormal or tenderness General Extremity: Negative for edema or pulses abnormal Neuro oriented x3, CN's II-XII intact bilaterally, no sensory deficits noted and gait normal Sensorium / Orientation: awake and alert Motor Exam: strength 5/5 throughout Skin no rashes or lesions noted and no wounds MDM MDM MDM Narrative Medical decision making narrative: Given her mild resting tachycardia and pulse ox 91% on room air, and persistent symptoms a chest x-ray was obtained. On my interpretation 1 view is negative for anything acute. However radiology called it as possible infiltrates so will treat her with a Z-Rom, advised to continue and finish the amoxicillin, and prescribed an antitussive. She is stable for discharge home. She has an albuterol inhaler to use for bronchospasm or wheezing as needed. Radiography Diagnostic Testing: Radiology Impression Chest X-Ray 02/24/21 11:04 IMPRESSION: Mild right basilar inflammation or infection. at 1219 Reported and signed by: Ewelina Peng MD Electronically Signed: Ewelina Peng MD at 12:17 EDT Tel , Service support , Discharge Plan Triage Chief Complaint: Cough ED Provider: Tariq Abreu Dx/Rx/DC Orders Clinical Impression: Acute lower respiratory tract infection Instructions: Walking Pneumonia Prescriptions: New azithromycin [azithromycin] 250 MG tablet 250 mg PO DAILY Qty: 6 RF: 0 benzonatate [benzonatate] 100 MG capsule 200 mg PO TID PRN PRN (Reason: Cough) Qty: 20 RF: 0 No Action pravastatin 40 MG tablet 40 mg PO DAILY RF: 0 aspirin 81 MG tablet 81 mg PO DAILY@0800 Qty: 30 RF: 0 Primary Care Provider: Juanis Ferrer Referrals: Juanis Ferrer PA [Primary Care Provider] - 1 Week if not improving Disposition Disposition: Home, self care
[2021-02-24 13:25] VITALS: BP 162/87; PULSE 88; RESP 18; O2SAT 93
== END 2021-02-24 13:25 | disposition home or self-care (01) ==
PROVIDERS: Emergency Provider Emergency Medicine; PCP Physician Assistant
DX: J06.9 Acute upper respiratory infection, unspecified (principal); F17.210 Nicotine dependence, cigarettes, uncomplicated; E78.5 Hyperlipidemia, unspecified
CPT/HCPCS: 71045; 99283

== ENCOUNTER 2022-04-26 09:55 | Emergency (ER) | payer OTHER, SELFPAY ==
[2022-04-26 09:57] VITALS: BP 144/94; PULSE 88; RESP 18; TEMP 36.7; O2SAT 95; BMI 29.0
--- NOTE | 2022-04-26 10:12 | EX.ED.DYSGE1 ---
HPI History of Present Illness Chief Complaint: Headache Detail of Chief Complaint: Migraines, vomiting Informant: patient Onset/Context/Timing Onset: Days (4 days) Context: Gradual Onset Current Severity: Gone Maximum Severity: Moderate Narrative Narrative: Patient presents after 4 days of frequent migraines. She states she will tend to get clusters of migraines like this. She develops nausea and vomiting with the episodes and is concerned that she is getting dehydrated. She states she took an Imitrex around 5 AM this morning and currently does not have a headache. [facility] Medical History (Updated 04/26/22 @ 11:[address] Marisela Alvarez MD) Hyperlipidemia Migraines Home Medications pravastatin 40 mg tablet 40 mg PO DAILY 04/08/18 [History Last Taken Unknown] aspirin 81 mg tablet,delayed release 81 mg PO DAILY@0800 #30 tabs 08/29/18 [Rx Last Taken Unknown] azithromycin 250 mg tablet 250 mg PO DAILY #6 TABLETS 02/24/21 [Rx Last Taken Unknown] benzonatate 100 mg capsule 200 mg PO TID PRN PRN Cough #20 CAPSULES 02/24/21 [Rx Last Taken Unknown] ondansetron 4 mg disintegrating tablet 4 mg PO Q8H PRN nausea and vomiting #10 tabs 04/26/22 [Rx Last Taken Unknown] Allergy/AdvReac Type Severity Reaction Status Date / Time No Known Allergies Allergy Verified 04/26/22 09:57 Social History Smoking Status: Current every day smoker tobacco type: cigarettes ROS ROS ED Constitutional Constitutional ED: Denies chills or fever(s) Eyes Eyes: Denies change in vision or discharge from eye(s) ENT ENT ED: Denies discharge from eye(s), rhinorrhea or sore throat Cardiovascular Cardiovascular: Denies chest pain or palpitations Respiratory/Chest Respiratory/Chest: Denies cough or dyspnea Gastrointestinal Gastrointestinal: Reports nausea and vomiting; Denies abdominal pain or diarrhea Genitourinary Genitourinary ED: Denies difficulty urinating or dysuria Musculoskeletal Musculoskeletal: Denies back pain or extremity pain Integumentary Denies Abrasions or rash Neurologic Neurologic: Reports headache(s); Denies weakness Psychiatric Psychiatric: Denies anxiety or depression Allergic/Immunologic Allergic/Immunologic ED: Denies lip swelling or urticaria EXAM Physical Exam Const Vital Signs: 04/26/22 09:57 Temperature 98.0 F Temperature Source Temporal Pulse Rate 88 Respiratory Rate 18 Blood Pressure 144/94 H Blood Pressure Mean 110 Pulse Ox 95 Oxygen Delivery Method Room Air Positive well nourished and well developed General Appearance ED: well developed HEENT Reports normocephalic, head/scalp atraumatic and dry mucous membranes Mouth ED: Yes dry mucous membranes Mouth: dry mucous membranes Eyes PERRL and EOMs intact bilaterally Neck supple Chest Wall inspection of chest normal and palpation of chest normal Resp normal respiratory effort and clear to auscultation bilaterally Cardio regular rate and regular rhythm GI normal to inspection, nondistended, normoactive bowel sounds and non-tender Auscultation: normoactive bowel sounds Palpation: soft Extremity normal to inspection Neuro oriented x3 and no sensory deficits noted Sensorium / Orientation: alert Motor Exam: strength 5/5 throughout Psych mental status grossly normal Skin no rashes or lesions noted MDM MDM MDM Narrative Medical decision making narrative: Patient was given a liter IV fluid. Lab work and urinalysis ordered. Lab Data Attestation: I reviewed the patient's lab results. Labs: Laboratory Results - last 24 hr 04/26/22 04/26/22 04/26/22 10:20 10:20 10:20 WBC 8.3 RBC 4.82 Hgb 14.8 Hct 44.7 MCV 92.7 MCH 30.7 MCHC 33.1 RDW Std Deviation 45.7 H RDW Coeff of Gavin 13.4 Plt Count 250 MPV 9.6 Immature Gran % (Auto) 0.200 Neut % (Auto) 68.4 Lymph % (Auto) 21.3 Brule % (Auto) 6.6 Eos % (Auto) 3.4 Baso % (Auto) 0.1 Absolute Neuts (auto) 5.7 Absolute Lymphs (auto) 1.77 Nucleated RBC % 0 Sodium 141 Potassium 4.5 Chloride 110 H Carbon Dioxide 26.0 Anion Gap 5 BUN 27 H Creatinine 0.75 Estim Creat Clear Calc 72.81 Est GFR (MDRD) Af Amer 101 Est GFR (MDRD) Non-Af 83 BUN/Creatinine Ratio 36.1 H Glucose 92 Calcium 8.9 Urine Color Yellow Urine Clarity Clear Urine pH 5.0 Ur Specific [place] 1.020 Urine Protein Negative Urine Glucose (UA) Normal Urine Ketones Negative Urine Occult Blood Negative Urine Nitrite Negative Urine Bilirubin Negative Urine Urobilinogen Normal Ur Leukocyte Esterase Negative Urine RBC 0 SEEN Urine WBC 0 SEEN Ur Squamous Epith Cells 0 SEEN Urine Bacteria 0 SEEN Urine Mucus 0 SEEN Treatment and Re-Evaluation Narrative: On repeat evaluation patient resting comfortably. Lab work does reveal mild dehydration with an elevated BUN. Urinalysis reveals no infection. Patient will continue her Imitrex as needed when her migraines hit. She states this is a normal pattern for her where they will come on frequently for several weeks. She will be given a prescription for Zofran to help with nausea. I will write her off work today. Discharge Plan Triage Chief Complaint: Headache ED Provider: Marisela Alvarez Dx/Rx/DC Orders Clinical Impression: Migraines, Dehydration Instructions: ED Dehydration (Adult), ED, Migraine (Classical) Prescriptions: New ondansetron 4 mg tablet,disintegrating 4 mg PO Q8H PRN (Reason: nausea and vomiting) Qty: 10 0RF No Action pravastatin 40 MG tablet 40 mg PO DAILY aspirin 81 MG tablet 81 mg PO DAILY@0800 Qty: 30 0RF azithromycin [azithromycin] 250 MG tablet 250 mg PO DAILY Qty: 6 0RF Rx Instructions: Take double dose (2 pills) on first day benzonatate [benzonatate] 100 MG capsule 200 mg PO TID PRN PRN (Reason: Cough) Qty: 20 0RF Stand Alone Forms: ED Work / School Excuse Primary Care Provider: Juanis Ferrer Referrals: Juanis Ferrer, STEPH [Primary Care Provider] - As Needed Disposition Disposition: Home, Self Care
[2022-04-26] MEDS: 0.9% Normal Saline 1,000 ML 1000 ML IV (10:23)
[2022-04-26 10:27] LABS: Absolute Lymphocyte Count 1.77 X10^3/uL (0.83-4.51); Absolute Neutrophil Count 5.7 X10^3/uL (2.0-7.7); Basophil# 0.01 X10^3/uL; Basophil% 0.1 % (0-1); Eosinophil# 0.28 X10^3/uL; Eosinophils% 3.4 % (0-5); Hematocrit 44.7 % (37-47); Hemoglobin 14.8 g/dL (12.0-15.0); Lymphocyte # 1.77 X10^3/ul (0.83-4.51); Lymphocyte % 21.3 % (19-41); Mean Corp Hgb Conc 33.1 g/dL (32-36); Mean Corpuscular Hgb 30.7 pg (27.0-32.0); Mean Corpuscular Volume 92.7 fL (81-99); Mean Platelet Vol. 9.6 fl (6.2-12.0); Monocyte# 0.55 X10^3/uL; Monocyte% 6.6 % (0-10); NRBC Flagged by Analyzer 0 % (0-5); Neutrophil # 5.69 X10^3/uL (2.7-7.7); Neutrophil % 68.4 % (47-70); Platelet Count 250 K/mm3 (150-450); RBC Distribution Width CV 13.4 % (11.6-14.6); RBC Distribution Width SD 45.7 fl (35.1-43.9); Red Blood Count 4.82 M/mm3 (4.2-5.4); White Blood Count 8.3 K/mm3 (4.4-11.0)
[2022-04-26 10:31] LABS: Bacteria 0 SEEN /hpf (None Seen); Mucous, Urine 0 SEEN /hpf (<or=2+); Red Blood Cells-Urine 0 SEEN /hpf (0-5); Squamous Epithelial Cells - UA 0 SEEN /hpf (5-10); White Blood Cells 0 SEEN /hpf (0-5)
[2022-04-26 10:32] LABS: Color, Urine Yellow (Yellow); Glucose, Dipstick Normal (Normal); Ketone-Dipstick Negative (Negative); Leukocyte Esterase-Dipstick Negative /ul (Negative); Nitrite-Dipstick Negative (Negative); Occult Blood-Urine Negative /ul (Negative); Protein-Dipstick Negative (Negative); Urine Bilirubin Dipstick Negative (Negative); Urine Clarity Clear (Clear); Urine Urobilinogen Normal (Normal)
[2022-04-26 10:43] LABS: Anion Gap 5 (5-15); BUN 27 mg/dL (7-18); BUN/Creat Ratio 36.1 RATIO (10-20); Calcium,Total 8.9 mg/dL (8.5-10.1); Chloride 110 mmol/L (98-107); Creatinine, Serum 0.75 mg/dL (0.55-1.02); EST Glomerular Filtration Rate 83 mL/min (>60); Est Glom Filt Rate - Afr Amer 101 mL/min (>60); Estimated Creatinine Clearance 72.81 ml/min; Glucose 92 mg/dL (74-106); Potassium 4.5 mmol/L (3.5-5.1); Sodium Level 141 mmol/L (136-145)
== END 2022-04-26 11:23 | disposition home or self-care (01) ==
PROVIDERS: Emergency Provider Emergency Medicine; PCP Physician Assistant; Visit Provider Emergency Medicine
DX: E86.0 Dehydration (principal); E78.5 Hyperlipidemia, unspecified; F17.210 Nicotine dependence, cigarettes, uncomplicated; G43.909 Migraine, unspecified, not intractable, without status migrainosus
CPT/HCPCS: 80048; 81001; 85025; 96360; 99284; J7030; A4216

== ENCOUNTER 2022-05-02 11:04 | Emergency (ER) | payer OTHER, SELFPAY ==
[2022-05-02 11:05] VITALS: BP 150/100; PULSE 89; RESP 18; TEMP 36.2; O2SAT 97; BMI 28.8
--- NOTE | 2022-05-02 11:38 | CT_ITS ---
STUDY: CT ABDOMEN AND PELVIS WITH CONTRAST REASON FOR EXAM: Female, 62 years old. llq abdominal pain RADIATION DOSAGE (If Supplied By Facility): CTDIvol = ( 16.28 ) mGy, DLP = ( 1029.49 ) mGycm TECHNIQUE: Transaxial images were obtained from the dome of the diaphragm to the symphysis pubis without oral contrast. IV 100mL Isovue-300 was administered. Sagittal and coronal images were reconstructed. Individualized dose optimization techniques were used for this CT. COMPARISON: None. FINDINGS: Increased markings at the lung bases suggestive of scarring. The visualized portions of the heart are within normal limits. There is decreased attenuation of the liver consistent with steatosis. Normal gallbladder and extrahepatic biliary system. Normal spleen. Normal pancreas. Normal bilateral adrenal glands. Normal right kidney. 3 mm nonobstructive calculus in the upper and mid pole calyces of the left kidney. Normal visualized stomach. Normal small intestine. There is diverticulosis, with thickening of the colon wall, and pericolonic inflammation changes consistent with acute diverticulitis. The appendix is visualized and appears normal. There is diffuse atherosclerotic calcification of the abdominal aorta, without a demonstrated aneurysm. Normal inferior vena cava. Normal retroperitoneum. Normal urinary bladder. Small amount of fluid in the pelvis. Normal abdominal wall. There are diffuse degenerative changes of the visualized lumbar spine. CT/Abdomen/Pelvis W IV Cont ONLY IMPRESSION: Diffuse thickening of the sigmoid colon with areas of diverticulosis or diverticulitis. Small amount of free fluid in the pelvis. Electronically Signed: Luis Gregorio MD at 12:41 EDT ,
--- NOTE | 2022-05-02 11:39 | EDS_ITS ---
HPI HPI - GI History of Present Illness Chief Complaint: Abd Pain Narrative Narrative: 62-year-old female presenting with constipation and left lower quadrant abdominal pain. She states her last significant bowel movement was about 4 days ago and she has been trying multiple stimulants at home and cannot have a bowel movement. She states she does not believe it stuck in her rectum. She points to the left lower quadrant of her abdominal pain. She has intermittent nausea but is not nauseous currently. No fevers or chills. No history of diverticulitis. She states her only intra-abdominal surgery is cholecystectomy. PFSH PFS Medical History Hyperlipidemia Migraines Home Medications pravastatin 40 mg tablet 40 mg PO DAILY 04/08/18 [History Last Taken Unknown] aspirin 81 mg tablet,delayed release 81 mg PO DAILY@0800 #30 tabs 08/29/18 [Rx Last Taken Unknown] benzonatate 100 mg capsule 200 mg PO TID PRN PRN Cough #20 CAPSULES 02/24/21 [Rx Last Taken Unknown] ondansetron 4 mg disintegrating tablet 4 mg PO Q8H PRN nausea and vomiting #10 tabs 04/26/22 [Rx Last Taken Unknown] amoxicillin 875 mg-potassium clavulanate 125 mg tablet 1 tab PO BID #24 tabs 05/02/22 [Rx Last Taken Unknown] Allergy/AdvReac Type Severity Reaction Status Date / Time No Known Allergies Allergy Verified 05/02/22 11:05 Social History Smoking Status: Current every day smoker tobacco type: cigarettes ROS ROS ED Constitutional Constitutional ED: Denies chills or fever(s) ENT ENT ED: Denies rhinorrhea or sore throat Cardiovascular Cardiovascular: Denies chest pain or palpitations Respiratory/Chest Respiratory/Chest: Denies cough or dyspnea Gastrointestinal Gastrointestinal: Reports abdominal pain, constipation and nausea Genitourinary Genitourinary ED: Denies dysuria or hematuria Musculoskeletal Musculoskeletal: Denies arthralgias Integumentary Denies abscess or Abrasions Neurologic Neurologic: Denies headache(s) Psychiatric Psychiatric: Denies anxiety or depression Endocrine Endocrinology: Denies polydipsia or polyphagia EXAM Physical Exam Const Vital Signs: 05/02/22 11:05 Temperature 97.2 F L Temperature Source Temporal Pulse Rate 89 Respiratory Rate 18 Blood Pressure 150/100 H Blood Pressure Mean 116 Pulse Ox 97 Oxygen Delivery Method Room Air MDM MDM MDM Narrative Medical decision making narrative: 50-year-old female presenting with left lower quad abdominal pain and constipation. She denies current nausea. She is not been vomiting. No fever, chills, body aches. Since patient has been constipated for 3 to 4 days I recommended holding off on morphine until we determined with her simply constipation or another etiology. She was amenable to this. She was given IV fluids and dose of Toradol for pain. Blood work is obtained and her CBC and CMP are within normal limits. Lipase is normal. CT of the abdomen pelvis was obtained and there is not appear to be any obstruction however she does have diffuse thickening of the sigmoid colon consistent with acute diverticulitis. Patient will be given magnesium citrate for home. She is also started on Augmentin. I feel that these may help her have a bowel movement. Return precautions were discussed at length. Patient stable for discharge at this time. Impression: 1. Constipation 2. Abdominal pain 3. Acute sigmoid diverticulitis Lab Data Attestation: I reviewed the patient's lab results. Labs: Laboratory Results - last 24 hr 05/02/22 05/02/22 11:25 11:25 WBC 10.6 RBC 5.04 Hgb 15.4 H Hct 46.1 MCV 91.5 MCH 30.6 MCHC 33.4 RDW Std Deviation 45.5 H RDW Coeff of Gavin 13.4 Plt Count 253 MPV 9.8 Immature Gran % (Auto) 0.300 Neut % (Auto) 79.5 H Lymph % (Auto) 12.5 L [place] % (Auto) 5.6 Eos % (Auto) 1.8 Baso % (Auto) 0.3 Absolute Neuts (auto) 8.4 H Absolute Lymphs (auto) 1.33 Nucleated RBC % 0 Sodium 140 Potassium 4.1 Chloride 110 H Carbon Dioxide 23.0 Anion Gap 7 BUN 27 H Creatinine 0.72 Estim Creat Clear Calc 75.84 Est GFR (MDRD) Af Amer 106 Est GFR (MDRD) Non-Af 87 BUN/Creatinine Ratio 37.5 H Glucose 95 Calcium 9.0 Total Bilirubin 0.50 AST 15 ALT 22 Alkaline Phosphatase 66 Total Protein 7.6 Albumin 3.7 Globulin 3.9 Albumin/Globulin Ratio 0.9 Lipase 122 Radiography Diagnostic Testing: Clinical Impression(s) from Imaging Studies Abdomen/Pelvis CT 05/02/22 11:38 IMPRESSION: Diffuse thickening of the sigmoid colon with areas of diverticulosis or diverticulitis. Small amount of free fluid in the pelvis. Electronically Signed: Luis Gregorio MD at 12:41 EDT , Discharge Plan Triage Chief Complaint: Abd Pain ED Provider: Nimesh Golden Dx/Rx/DC Orders Instructions: ED Constipation (Adult), ED Diverticulitis Prescriptions: New amoxicillin-pot clavulanate 875-125 mg tablet 1 tab PO BID Qty: 24 0RF No Action pravastatin 40 MG tablet 40 mg PO DAILY aspirin 81 MG tablet 81 mg PO DAILY@0800 Qty: 30 0RF benzonatate [benzonatate] 100 MG capsule 200 mg PO TID PRN PRN (Reason: Cough) Qty: 20 0RF ondansetron 4 mg tablet,disintegrating 4 mg PO Q8H PRN (Reason: nausea and vomiting) Qty: 10 0RF Primary Care Provider: Juanis Ferrer Referrals: Juanis Ferrer PA [Primary Care Provider] - Disposition Disposition: Home, Self Care
[2022-05-02] MEDS: 0.9% Normal Saline 1,000 ML 1000 ML IV (11:49)
[2022-05-02] MEDS: Ketorolac 15 MG/ML Vial IV (11:49)
[2022-05-02 11:50] LABS: Absolute Lymphocyte Count 1.33 X10^3/uL (0.83-4.51); Absolute Neutrophil Count 8.4 X10^3/uL (2.0-7.7); Basophil# 0.03 X10^3/uL; Basophil% 0.3 % (0-1); Eosinophil# 0.19 X10^3/uL; Eosinophils% 1.8 % (0-5); Hematocrit 46.1 % (37-47); Hemoglobin 15.4 g/dL (12.0-15.0); Lymphocyte # 1.33 X10^3/ul (0.83-4.51); Lymphocyte % 12.5 % (19-41); Mean Corp Hgb Conc 33.4 g/dL (32-36); Mean Corpuscular Hgb 30.6 pg (27.0-32.0); Mean Corpuscular Volume 91.5 fL (81-99); Mean Platelet Vol. 9.8 fl (6.2-12.0); Monocyte% 5.6 % (0-10); NRBC Flagged by Analyzer 0 % (0-5); Neutrophil # 8.44 X10^3/uL (2.7-7.7); Neutrophil % 79.5 % (47-70); Platelet Count 253 K/mm3 (150-450); RBC Distribution Width CV 13.4 % (11.6-14.6); RBC Distribution Width SD 45.5 fl (35.1-43.9); Red Blood Count 5.04 M/mm3 (4.2-5.4); White Blood Count 10.6 K/mm3 (4.4-11.0)
[2022-05-02 12:06] LABS: ALB/GLOB Ratio 0.9 RATIO (0.9-2.4); AST(SGOT) 15 U/L (15-37); Alanine Aminotransfer ALT/SGPT 22 U/L (13-56); Albumin, Serum 3.7 g/dL (3.2-5.0); Alkaline Phosphatase 66 U/L (45-117); Anion Gap 7 (5-15); BUN 27 mg/dL (7-18); BUN/Creat Ratio 37.5 RATIO (10-20); Chloride 110 mmol/L (98-107); Creatinine, Serum 0.72 mg/dL (0.55-1.02); EST Glomerular Filtration Rate 87 mL/min (>60); Est Glom Filt Rate - Afr Amer 106 mL/min (>60); Estimated Creatinine Clearance 75.84 ml/min; Globulin 3.9 g/dL (2.2-4.2); Glucose 95 mg/dL (74-106); Lipase 122 U/L (73-393); Potassium 4.1 mmol/L (3.5-5.1); Protein, Total 7.6 g/dL (6.4-8.2); Sodium Level 140 mmol/L (136-145)
[2022-05-02] MEDS: Amox/Clavulanate 875 MG Tablet PO (13:27)
[2022-05-02 13:33] VITALS: BP 131/90; PULSE 86; RESP 16; O2SAT 98
== END 2022-05-02 13:39 | disposition home or self-care (01) ==
PROVIDERS: Emergency Provider Student in an Organized Health Care Education/Training Program; PCP Physician Assistant; Visit Provider Student in an Organized Health Care Education/Training Program
DX: K57.32 Diverticulitis of large intestine without perforation or abscess without bleeding (principal); F17.210 Nicotine dependence, cigarettes, uncomplicated; E78.5 Hyperlipidemia, unspecified; K59.00 Constipation, unspecified
CPT/HCPCS: 74177; 80053; 83690; 85025; 96361; 96374; 99283; J7030; Q9967